=== PATIENT | female | born 1980 | race Caucasian/White ===

== ENCOUNTER 2019-04-08 09:56 | Emergency (ER) | payer OTHER ==
[~2019-04-08] VITALS: Ht 152.4 cm; Wt 72.6 kg
[2019-04-08] MEDS ORDERED: ZOLOFT100 MG PO (10:30)
[2019-04-08] MEDS ORDERED: CLARITIN10 MG PO (12:11)
[2019-04-08] MEDS ORDERED: ZITHROMAX500 MG PO (12:11)
[2019-04-08] MEDS ORDERED: TUSNEL LIQUID178 ML PO (12:11)
== END 2019-04-08 12:29 | disposition home or self-care (01) ==
LOC: ER 09:56
DX: J06.9 Acute upper respiratory infection, unspecified (principal); R05 Cough